=== PATIENT | male | born 1950 | race Caucasian/White ===

== ENCOUNTER 2017-04-04 17:13 | Inpatient (IN) | payer MEDICARE, OTHER ==
[~2017-04-04] VITALS: Ht 167.6 cm; Wt 63.5 kg
[2017-04-04 18:24] LABS: HEMOGLOBIN 10.7 gm/dl (14.0-17.5); RED BLOOD COUNT 3.36 M/UL (4.20-5.50); WHITE BLOOD COUNT 12.8 K/UL (4.5-11.0)
[2017-04-04 18:51] LABS: BUN/CREATININE RATIO 14 (0-10)
[2017-04-05] MEDS ORDERED: METOPROLOL SUCC50 MG PO (07:58)
[2017-04-05] MEDS ORDERED: CELEXA40 MG PO (07:58)
[2017-04-05] MEDS ORDERED: PROTONIX40 MG PO (07:59)
[2017-04-05] MEDS ORDERED: ZYRTEC10 MG PO (08:00)
[2017-04-05] MEDS ORDERED: MIRALAX17 GM PO (08:01)
[2017-04-05] MEDS ORDERED: DEPAKOTE500 MG PO (08:02)
[2017-04-05] MEDS ORDERED: NEURONTIN800 MG PO (08:02)
[2017-04-05] MEDS ORDERED: LANTUS100 UNIT/1 SC (08:05)
[2017-04-05 08:33] LABS: HEMOGLOBIN 11.1 gm/dl (14.0-17.5); RED BLOOD COUNT 3.5 M/UL (4.20-5.50); WHITE BLOOD COUNT 10.2 K/UL (4.5-11.0)
[2017-04-05 08:57] LABS: BUN/CREATININE RATIO 19 (0-10)
[2017-04-06 03:22] LABS: HEMOGLOBIN 10.1 gm/dl (14.0-17.5); RED BLOOD COUNT 3.15 M/UL (4.20-5.50)
[2017-04-06 03:26] LABS: WHITE BLOOD COUNT 6.9 K/UL (4.5-11.0)
[2017-04-06 04:08] LABS: BUN/CREATININE RATIO 14 (0-10)
[2017-04-07] MEDS ORDERED: FERROUS SULFAT325 MG PO (16:18)
[2017-04-07] MEDS ORDERED: ENSURE ORIGINA237 ML PO (16:21)
[2017-04-07] MEDS ORDERED: VITAMIN B12-FO1 EACH PO (16:24)
== END 2017-04-07 18:25 | disposition home or self-care (01) | DRG 564 ==
LOC: ER1 17:13 → ZEROF 22:15 → CCU 22:15 → ZEROF 22:15 → CCU 04-05 20:42 → M/S 04-06 11:36
PROVIDERS: Emergency Medicine; Internal Medicine Infectious Disease; ADMIT Family Medicine
DX: T79.6XXA Traumatic ischemia of muscle, initial encounter (principal); G93.41 Metabolic encephalopathy; T88.6XXA Anaphylactic reaction due to adverse effect of correct drug or medicament properly administered, initial encounter; T44.7X5A Adverse effect of beta-adrenoreceptor antagonists, initial encounter; W18.39XA Other fall on same level, initial encounter; F39 Unspecified mood [affective] disorder; D50.9 Iron deficiency anemia, unspecified; R00.1 Bradycardia, unspecified; I10 Essential (primary) hypertension; R63.4 Abnormal weight loss; Z68.22 Body mass index [BMI] 22.0-22.9, adult; Z90.3 Acquired absence of stomach [part of]; Z91.81 History of falling; Z82.49 Family history of ischemic heart disease and other diseases of the circulatory system; Z80.9 Family history of malignant neoplasm, unspecified; Y92.009 Unspecified place in unspecified non-institutional (private) residence as the place of occurrence of the external cause; Z91.11 Patient's noncompliance with dietary regimen; Z88.6 Allergy status to analgesic agent; Z88.8 Allergy status to other drugs, medicaments and biological substances; Z79.4 Long term (current) use of insulin; Z79.899 Other long term (current) drug therapy
CPT/HCPCS: ECHO; 36415; 70450; 70551; 71010; 72128; 72131; 73502; 74000; 80048; 80053; 80299; 80307; 81001; 82140; 82550; 82553; 82607; 82728; 82746; 82962; 83036; 83540; 83550; 83605; 83874; 83880; 84439; 84443; 84484; 85025; 85027; 85379; 85610; 85730; 87040; 87086; 93005; 93270; 93306; 96361; 96374; 97116; 97530; 97535; 99285; J1265; J2550; J3420; J7030; J7050

== ENCOUNTER 2021-04-20 17:35 | Inpatient (IN) | payer MEDICARE, OTHER ==
[~2021-04-20] VITALS: Ht 167.6 cm; Wt 63.5 kg
[~2021-04-20 17:35] MED LIST: CELEXA40 MG PO; DEPAKOTE500 MG PO; ENSURE ORIGINA237 ML PO; FERROUS SULFAT325 MG PO; LANTUS100 UNIT/1 SC; METOPROLOL SUCC50 MG PO; MIRALAX17 GM PO; NEURONTIN800 MG PO; PROTONIX40 MG PO; VITAMIN B12-FO1 EACH PO; ZYRTEC10 MG PO
[2021-04-20 17:55] LABS: HEMOGLOBIN 14.3 gm/dl (14.0-17.5); RED BLOOD COUNT 4.55 M/UL (4.20-5.50); WHITE BLOOD COUNT 8.9 K/UL (4.5-11.0)
[2021-04-20 18:17] LABS: BUN/CREATININE RATIO 9 (0-10)
[2021-04-20] MEDS ORDERED: LOPRESSOR 50 MG50 MG PO (20:11)
[2021-04-20] MEDS ORDERED: LEVOTHYROXINE50 MCG PO (20:11)
[2021-04-20] MEDS ORDERED: ROPINIROLE HCL0.5 MG PO (20:13)
[2021-04-20] MEDS ORDERED: LEVEMIR FL100 UNIT/1 SQ (20:14)
[2021-04-22 06:33] LABS: BUN/CREATININE RATIO 13 (0-10)
[2021-04-22] MEDS ORDERED: ASPIRIN EC81 MG PO (12:00)
[2021-04-22] MEDS ORDERED: LOPRESSOR 25 MG25 MG PO (12:00)
[2021-04-22] MEDS ORDERED: ATORVASTATIN CA40 MG PO (12:00)
[2021-04-22] MEDS ORDERED: BRILINTA 90 MG90 MG PO (12:00)
[2021-04-22] MEDS ORDERED: NITROGLYCERIN0.4 MG SL (12:00)
== END 2021-04-22 15:30 | disposition home or self-care (01) | DRG 247 ==
LOC: ER1 17:35 → CDU 18:17 → CCU 18:17 → PROG CARE 04-21 17:12
PROVIDERS: Emergency Medicine; Internal Medicine; ADMIT Internal Medicine Cardiovascular Disease
PROC: 027034Z Dilation of Coronary Artery, One Artery with Drug-eluting Intraluminal Device, Percutaneous Approach (ICD-10-PCS; principal; 2021-04-20)
PROC: 02703ZZ Dilation of Coronary Artery, One Artery, Percutaneous Approach (ICD-10-PCS; 2021-04-20)
PROC: B2111ZZ Fluoroscopy of Multiple Coronary Arteries using Low Osmolar Contrast (ICD-10-PCS; 2021-04-20)
PROC: 4A023N7 Measurement of Cardiac Sampling and Pressure, Left Heart, Percutaneous Approach (ICD-10-PCS; 2021-04-20)
PROC: B24BZZ4 Ultrasonography of Heart with Aorta, Transesophageal (ICD-10-PCS; 2021-04-21)
DX: I21.09 ST elevation (STEMI) myocardial infarction involving other coronary artery of anterior wall (principal); E11.9 Type 2 diabetes mellitus without complications; I25.10 Atherosclerotic heart disease of native coronary artery without angina pectoris; E78.5 Hyperlipidemia, unspecified; F41.9 Anxiety disorder, unspecified; Z20.822 Contact with and (suspected) exposure to COVID-19; N40.0 Benign prostatic hyperplasia without lower urinary tract symptoms; I70.0 Atherosclerosis of aorta; K21.9 Gastro-esophageal reflux disease without esophagitis; Z79.82 Long term (current) use of aspirin; Z79.4 Long term (current) use of insulin; Z90.49 Acquired absence of other specified parts of digestive tract; Z82.49 Family history of ischemic heart disease and other diseases of the circulatory system; Z80.9 Family history of malignant neoplasm, unspecified; Z88.6 Allergy status to analgesic agent; Z88.5 Allergy status to narcotic agent
CPT/HCPCS: ECHO; 36415; 71045; 80048; 80053; 80061; 82550; 82553; 82962; 83735; 83874; 83880; 84484; 85025; 85610; 85730; 93005; 93306; 96374; 96375; 99152; 99153; 99285; C1725; C1769; C1874; C1887; C1894; J0461; J0583; J1170; J1644; J2270; J2370; J2405; J2550; J3010; J7030; J7040; Q9965; U0002

== ENCOUNTER → 2022-04-07 | Outpatient (CLI) | payer MEDICARE, OTHER ==
[~2022-04-07] MED LIST changes: +ASPIRIN EC81 MG PO; +ATORVASTATIN CA40 MG PO; +BRILINTA 90 MG90 MG PO; +LEVEMIR FL100 UNIT/1 SQ; +LEVOTHYROXINE50 MCG PO; +LOPRESSOR 25 MG25 MG PO; +LOPRESSOR 50 MG50 MG PO; +NITROGLYCERIN0.4 MG SL; +ROPINIROLE HCL0.5 MG PO
== END ==
LOC: EXRD 03-31 14:00
DX: I73.9 Peripheral vascular disease, unspecified (principal)
CPT/HCPCS: 93922; 93925